=== PATIENT | female | born 1975 | race Caucasian/White ===

== ENCOUNTER 2020-07-07 08:58 | Inpatient (IN) ==
--- NOTE | 2020-07-04 11:23 | Anesthesiology Consultation ---
Date of Service July 04, 2020 Assessment & Plan Chart Review Chart Review: Acceptable Risk for Surgery and Patient NOT seen in Pre Admission Testing Consults Requested none ASA ASA3 Proposed Anesthesia Anesthesia Type: General History Surgery Operation Date: 07/07/20 10:05 Proposed Procedures p L3-L5 Decompression Fusion, Spinal Cord Monitoring - Vijay Ramirez DO Height/Weight Height: 5 ft 9 in Weight: 108.862 kg Allergies Allergy/AdvReac Type Severity Reaction Status Date / Time Sulfa (Sulfonamide Allergy Unknown Rash Verified 06/30/20 15:31 Antibiotics) Medications Home Medications Medication Instructions Recorded Confirmed Last Taken acetaminophen [Tylenol Extra 1,000 mg PO QID PRN 06/30/20 06/30/20 Unknown Strength] ascorbic acid (vitamin C) [Vitamin 1 g PO QPM 06/30/20 06/30/20 Unknown C] cholecalciferol (vitamin D3) 125 mcg PO QPM 06/30/20 06/30/20 Unknown [Vitamin D3] dextroamphetamine-amphetamine 15 mg PO QAM 06/30/20 06/30/20 Unknown [Adderall XR] multivitamin 1 tab PO QPM 06/30/20 06/30/20 Unknown prednisone 40 mg PO QAM 06/30/20 06/30/20 Unknown zinc 50 mg PO QPM 06/30/20 06/30/20 Unknown Past Medical History Medical History ADHD Anxiety HX Asthma A [id number] INHALER USE ADULT GERD (gastroesophageal reflux disease) ON OCC MVP (mitral valve prolapse) DX'D "MILD" PER ECHO PER PT Temporomandibular joint disorder RIGHT SIDE CLICKS ON OCC-LOCKED X 1-NOT RECENTLY Exercise / Class Metabolic Activity III < 4 Walking/Shop/Light housework Past Family History Family History Grandfather (Maternal) Family history of diabetes mellitus Past Surgical History Surgical History History of dilatation and curettage X 2 History of esophagogastroduodenoscopy (EGD) History of sleeve gastrectomy LATERAL Previous back surgery Past Anesthesia History No Hx of Anesthesia Complications and No Family Hx of Anesthesia Complications History of PONV No Hx of PONV and No Hx of Motion Sickness Social History Smoking Status: Former smoker Do You Dip or Chew Tobacco: No Smoking End Date: QUIT 2005 Hx Alcohol Use: Yes Alcohol type: beer and hard liquor Alcohol Intake Frequency Comment: RARELY 1 X A MONTH Hx Substance Use: No Testing Electrocardiogram Date: 07/04/20 Findings: + NSR @ (62) Chest X-Ray Date: 06/28/20 Findings: + NAD
[~2020-07-07 08:58] MED LIST: ACETAMINOPHEN 500 MG TAB PO SCH; CEFAZOLIN 2000MG 2,000 MG/15 ML SYR IV SCH; CeleBREX 200 MG CAP PO SCH; GABAPENTIN 900 MG DOSE PO SCH; LR 15ML/HR IV SCH
[2020-07-07] MEDS ORDERED: PROMETHAZINE HCL 12.5 MG in SODIUM CHLORIDE 0.9% 50 ML IV PRN ×3 (13:30→17:51)
[2020-07-07] MEDS ORDERED: ATROPINE SULFATE 0.1 MG/ML 10ML SYR IV PRN (13:30)
[2020-07-07] MEDS ORDERED: ONDANSETRON INJ 2 MG/ML 2 ML VIAL IV PRN ×2 (13:30→17:51)
[2020-07-07] MEDS ORDERED: ePHEDrine sulfate 50 MG/ML AMP IV PRN (13:30)
--- NOTE | 2020-07-07 13:38 | History & Physical Bridge Note ---
Date of Service July 07, 2020 History & Physical Bridge Note I have examined the patient, reviewed the History & Physical and in the interval since the performance of the History & Physical I have noted the following changes of clinical significance: no changes noted
--- NOTE | 2020-07-07 13:39 | History & Physical Report ---
Date of Service July 07, 2020 Assessment & Plan (1) Neurogenic claudication due to lumbar spinal stenosis: Admission and Anticipated Discharge Date Admission Date: L3-L5 decompression fusion History of Present Illness Chief Complaint: Back and bilateral leg pain Primary Care Provider: NO PCP This is a 44-year-old female who presents with worsening back and bilateral leg pain. After failing course of nonoperative care is here for surgical invention. Allergies Allergy/AdvReac Type Severity Reaction Status Date / Time Sulfa (Sulfonamide Allergy Unknown Rash Verified 07/07/20 09:32 Antibiotics) Home Medications Home Medications Medication Instructions Recorded Confirmed Type acetaminophen [Tylenol Extra 1,000 mg PO QID PRN 06/30/20 07/07/20 History Strength] ascorbic acid (vitamin C) [Vitamin 1 g PO QPM 06/30/20 07/07/20 History C] cholecalciferol (vitamin D3) 125 mcg PO QPM 06/30/20 07/07/20 History [Vitamin D3] dextroamphetamine-amphetamine 15 mg PO QAM 06/30/20 07/07/20 History [Adderall XR] multivitamin 1 tab PO QPM 06/30/20 07/07/20 History prednisone 40 mg PO QAM 06/30/20 07/07/20 History zinc 50 mg PO QPM 06/30/20 07/07/20 History Past Med/Surg History Medical History ADHD Anxiety HX Asthma A [id number] INHALER USE ADULT GERD (gastroesophageal reflux disease) ON OCC MVP (mitral valve prolapse) DX'D "MILD" PER ECHO PER PT Temporomandibular joint disorder RIGHT SIDE CLICKS ON OCC-LOCKED X 1-NOT RECENTLY Surgical History History of dilatation and curettage X 2 History of esophagogastroduodenoscopy (EGD) History of sleeve gastrectomy LATERAL Previous back surgery Family History Grandfather (Maternal) Family history of diabetes mellitus Social History Smoking Status: Former smoker Smoking End Date: QUIT 2006; Second Hand Exposure: Yes (MOTHER SMOKED); Do You Dip or Chew Tobacco: No; Hx Alcohol Use: Yes Alcohol type: beer and hard liquor Hx Substance Use: No Preferred Language: Setswana Communication Ability: Effective Paving Contractor Required: No Beliefs That Will Affect Care: None Current Living Situation: Spouse and Family Other Information That Helps Us Care for You: No Feels Safe at Home: Yes Safety Concerns: Feels Safe At This Time Assistive Devices: Glasses and Hearing Aid - Bilateral Physical Exam Physical Exam: Patient is alert and oriented neurologically intact Heart regular rhythm Lungs clear to auscultation Results & Data ([facility]) Vital Signs (Past 12 Hours) Vital Signs Temp Pulse Resp BP Pulse Ox 07/07/20 09:22 36.8 C 79 18 114/78 99
[2020-07-07] MEDS ORDERED: MIDAZOLAM HCL 1 MG/ML 2ML VIAL ONE (14:05)
[2020-07-07] MEDS ORDERED: fentaNYL citrate 100 MCG/2 ML VIAL ONE ×2 (14:06→14:50)
[2020-07-07] MEDS ORDERED: BACITRACIN INJ 50,000 UNIT VIAL ONE (14:07)
[2020-07-07] MEDS ORDERED: BUPIVACAINE/EPINEPHRINE 0.25% 1:200,000 30 ML VIAL ONE (14:07)
[2020-07-07] MEDS ORDERED: LIDOCAINE HCL 2% 2 ML VIAL/AMP(20MG/ML) INFIL ONE (15:29)
[2020-07-07] MEDS ORDERED: ONDANSETRON INJ 2 MG/ML 2 ML VIAL ONE (15:29)
[2020-07-07] MEDS ORDERED: DEXAMETHASONE SOD INJ 4 MG/ML VIAL ONE (15:29)
[2020-07-07] MEDS ORDERED: PROPOFOL IV EMULSION 10 MG/ML 20 ML VIAL IV ONE (15:29)
[2020-07-07] MEDS ORDERED: ROCURONIUM BROMIDE 10 MG/ML 5 ML VIAL IV ONE (15:29)
[2020-07-07] MEDS ORDERED: GLYCOPYRROLATE 0.2 MG/ML VIAL ONE (15:30)
[2020-07-07] MEDS ORDERED: NEOSTIGMINE METHYLSULFATE 1 MG/ML 10ML VIAL ONE (15:30)
[2020-07-07] MEDS ORDERED: FLOSEAL HEMOSTATIC MATRIX 10ML TOP ONE (15:41)
--- NOTE | 2020-07-07 15:57 | Operative Report ---
Post Operative Report Pre & Post Diagnosis Operation Date: 07/07/20 10:05 Pre-Op Diagnosis: Lumbar spinal stenosis with herniated nucleus pulposus and radiculopathy Post-Op Diagnosis: Same I identified the patient and participated in the time-out.: Yes Procedure Operation Date: 07/07/20 10:05 Actual Procedures #1 revision decompression with bilateral medial facetectomies and foraminotomies L3-4 and L4-5 per #2 posterior spinal fusion L3-4 and L4-5 per #3 placement posterior instrumentation L3-4 and L4-5 per #4 interbody fusion L3-4. #5 placement peek cage 9 x 22 mm at L3-4. #6 placement of locally harvested morselized autograft in the posterior lateral gutters. #7 placement infuse collagen sponge, master graft in the posterior lateral gutters and ostial amp and interbody space. Surgeon Vijay Ramirez DO Timber Incisor Operator Bruna Lozano Estimated Blood Loss 100 Findings Consistent with Post-Op Diagnosis Specimens None Indications This is a 45-year-old female who presents with above-mentioned diagnosis after failing course of nonoperative care is here for the above-mentioned procedure. Description of Procedure Patient was met with identified informed consent obtained. Patient was then taken to the operative suite underwent an patient placed in a prone position the Cortez table on top of the Chad frame. All bony prominences well-padded eyes inspected to ensure no external pressure placed upon the. This point the lumbar spine was prepped and draped in normal sterile fashion. Sharp dissection with the assistance of Bovie cautery performed down to and exposing the remaining lamina and transverse processes of L3-L4 and L5 bilaterally. From caudal cephalad fashion revision complete laminectomy of L3 partial laminectomy L4 was performed addressing severe spinal stenosis. Pedicle screws were then placed in L3-L4-L5 bilaterally with assistance of fluoroscopy and the proper sized shirin placed. By way the transforaminal approach on the right complete discectomy was performed endplates coated to subcortical bleeding bone and a 9 x 22 mm peek cage filled with osteo-bone graft tapped in position. The rods were then locked into final position bilaterally. The transverse processes of L3-L4-L5 bur to subcortical bleeding bone. Infuse collagen sponge master graft of autograft was placed in the posterior gutters. 15 round MICHAEL drain inserted. The incision was then closed with 1 Vicryl the fascia 2-0 Vicryl subcutaneously and 4 Monocryl for final skin closure Steri-Strip sterile dressings placed. Patient waken taken PACU stable initially please note spinal cord monitoring was utilized for the procedure no changes noted. Lastly Bruna Lozano was present at the entire surgery involved the patient positioning complex portion of the surgery and final skin closure. I attest to the content of the Intraoperative Record and any orders documented therein. Any exceptions are noted below.
--- NOTE | 2020-07-07 16:01 | Fluoroscopy Report ---
FL lumbar spine 2-3V CLINICAL HISTORY: L3-L5 DECOM/FUSION COMPARISON STUDY: FLUOROSCOPY TIME: 15 seconds. NUMBER OF FLUOROSCOPIC IMAGES: 2 FINDINGS: Intraoperative fluoroscopic spot images reveal postsurgical changes of an L3-4 discectomy a nd interbody fusion. There is evidence for an L3-L5 posterior fusion with pedicle screws and adjoinin g spinal rods IMPRESSION: 1. Intraoperative radiographs demonstrating an L3-L5 spinal decompression and fusion ACT 112: Negative or not required by law. Electronically signed by: David Ledezma M.D. 07/07/2020 3:59 PM
[2020-07-07] MEDS: fentaNYL citrate 100 MCG/2 ML VIAL IV PRN ×2 (16:39→16:50)
[2020-07-07] MEDS: HYDROmorphone INJ 2 MG/ML SYR/VIAL IV PRN ×2 (17:05→17:13)
--- NOTE | 2020-07-07 17:38 | Anesthesiology Progress Note ---
Date of Service July 07, 2020 Anesthesia Post Procedure Vital Signs Vital Signs: Temp Pulse Pulse Resp BP Pulse Ox 07/07/20 17:25 36.5 C 81 20 134/80 99 07/07/20 17:15 80 13 129/78 99 07/07/20 17:05 73 14 159/96 H 99 07/07/20 16:55 70 12 143/93 H 98 07/07/20 16:45 65 17 140/90 100 07/07/20 16:35 73 15 144/95 H 99 07/07/20 16:25 36.0 C L 76 18 136/82 100 07/07/20 09:22 36.8 C 79 18 114/78 99 Pain Intensity Lower Back: Pain Intensity: 4 Transfer of Care Handoff Completed per policy Notes Mental Status: alert / awake / arousable and participated in evaluation Patient Amnestic to Procedure: Yes Nausea / Vomiting: adequately controlled Pain: adequately controlled Airway Patency, RR, SpO2: stable & adequate BP & HR: stable & adequate Hydration State: stable & adequate Anesthetic Complications: no major complications apparent and Pt Satisfied with anesthetic care
[2020-07-07] MEDS ORDERED: HYDROmorphone INJ 0.5 MG/0.5 ML SYR IV PRN (17:51)
[2020-07-07] MEDS ORDERED: FAMOTIDINE 20 MG TAB PO PRN (17:51)
[2020-07-07] MEDS ORDERED: bisacodyL 10 MG SUPP PR PRN (17:51)
[2020-07-07] MEDS ORDERED: ONDANSETRON 4 MG OD TAB PO PRN (17:51)
[2020-07-07] MEDS ORDERED: SOD PHOSPHATE/SOD BIPHOSPHATE ENEMA 132 ML BTL PR PRN (17:51)
[2020-07-07] MEDS ORDERED: LORazepam 0.5 MG/1 ML VIAL IV PRN (17:51)
[2020-07-07] MEDS ORDERED: MAGNESIUM HYDROXIDE SUSP 30 ML UDC PO PRN (17:51)
[2020-07-07] MEDS ORDERED: DO NOT ADMINISTER PNEUMOCOCCAL VACCINE PRN (17:51)
[2020-07-07] MEDS ORDERED: NALOXONE HCL 0.4 MG/1 ML VIAL/CARP IV PRN (17:51)
[2020-07-07] MEDS ORDERED: ACETAMINOPHEN 1,000 MG/100 ML VIAL IV PRN (17:51)
[2020-07-07] MEDS ORDERED: DO NOT ADMINISTER FLU VACCINE PRN (17:51)
[2020-07-07] MEDS ORDERED: ALUMINUM/MAGNESIUM SUSP 30 ML UDC PO PRN (17:51)
[2020-07-07] MEDS ORDERED: METOCLOPRAMIDE HCL INJ 5 MG/ML 2 ML VIAL IV PRN (17:51)
[2020-07-07] MEDS ORDERED: LORazepam 0.5 MG TAB PO PRN (17:51)
[2020-07-07] MEDS: LACTATED RINGER'S 1,000 ML IV SCH ×2 (17:53→23:34)
[2020-07-07] MEDS: KETOROLAC 30 MG/ML VIAL IV SCH (19:19)
[2020-07-07] MEDS: CHOLECALCIFEROL 1,000 UNITS 25 MCG TAB PO SCH (20:28)
[2020-07-07] MEDS: DOCUSATE SODIUM/SENNA 50/8.6MG TAB PO SCH (20:28)
[2020-07-07] MEDS: MULTIVITAMIN TAB PO SCH (20:28)
[2020-07-07] MEDS: ZINC SULFATE 220 MG CAPSULE PO SCH (20:28)
[2020-07-07] MEDS: TRAMADOL HCL 50 MG TABLET PO PRN (20:28)
[2020-07-07] MEDS: CEFAZOLIN 2000MG 2,000 MG/15 ML SYR IV SCH (21:05)
[2020-07-07] MEDS: OXYCODONE HCL IR 5 MG TAB (IMMEDIATE RELEASE) PO PRN (23:45)
[2020-07-07] MEDS ORDERED: COUGH DROP (SUGAR FREE) LOZ 24 LOZ/1 BOX BUCCAL ONE (23:51)
[2020-07-08] MEDS: KETOROLAC 30 MG/ML VIAL IV SCH ×3 (01:58→11:37)
[2020-07-08 06:09] LABS: Basophils # (auto) 0.01 K/uL (0-0.2); Basophils % (auto) 0.1 %; Hematocrit (blood only) 36.2 % (37-47); Hemoglobin 11.6 g/dL (12.0-16.0); Immature Granulocytes # (auto) 0.03 K/uL (0.00-0.02); Immature Granulocytes % (auto) 0.2 %; Lymphocytes % (auto) 6.8 %; Mean Corpuscular Volume 84.2 fL (80-100); Mean Platelet Volume 8.9 fL (7.4-10.4); Monocytes # (auto) 0.68 K/uL (0.11-0.59); Monocytes % (auto) 5.1 %; Neutrophils # (auto) 11.61 K/uL (1.4-6.5); Neutrophils % (auto) 87.8 %; Platelet Count 272 K/uL (130-400); RDW Standard Deviation 39.4 fL (36.4-46.3); White Blood Count 13.23 K/uL (4.8-10.8)
[2020-07-08] MEDS: POLYETHYLENE (MIRALAX) 17 GM PACK PO SCH ×3 (06:13→18:13)
[2020-07-08] MEDS: CEFAZOLIN 2000MG 2,000 MG/15 ML SYR IV SCH (06:13)
[2020-07-08 06:34] LABS: BUN Creatinine Ratio 12.8 (10-20); Calcium 8.7 mg/dl (8.5-10.1); Creatinine Clr Calc Pharmacy 107.5 ml/min; Est GFR (Non-African American) 79.3; Potassium 4.1 mmol/L (3.5-5.1)
[2020-07-08] MEDS: DEXTROAMPHETAMINE/AMPHETAMINE ER 5 MG CAP PO SCH (08:12)
--- NOTE | 2020-07-08 11:42 | Orthopedic Progress Note ---
Date of Service July 08, 2020 Assessment & Plan (1) Neurogenic claudication due to lumbar spinal stenosis: Admission and Anticipated Discharge Date Admission Date: July 07, 2020 At this time we will continue physical therapy monitor her MICHAEL output anticipate discharge home later half this weekend. Subjective Back pain controlled leg symptoms markedly improved. Physical Exam Physical Exam: Patient is good strength testing is ambulating without difficulty. Results & Data ([facility]) Vital Signs (Past 12 Hours) Vital Signs Temp Pulse Resp BP BP Pulse Ox 07/08/20 07:25 37.2 C 85 16 96/58 L 94 07/08/20 02:05 36.7 C 85 16 102/60 94
[2020-07-08] MEDS: OXYCODONE HCL IR 5 MG TAB (IMMEDIATE RELEASE) PO PRN (15:11)
[2020-07-08] MEDS: TRAMADOL HCL 50 MG TABLET PO PRN (19:31)
[2020-07-08] MEDS: MULTIVITAMIN TAB PO SCH (19:32)
[2020-07-08] MEDS: DOCUSATE SODIUM/SENNA 50/8.6MG TAB PO SCH (19:32)
[2020-07-08] MEDS: CHOLECALCIFEROL 1,000 UNITS 25 MCG TAB PO SCH (19:33)
[2020-07-08] MEDS: ZINC SULFATE 220 MG CAPSULE PO SCH (19:33)
[2020-07-08] MEDS: HYDROmorphone INJ 1 MG/ML SYRINGE IV PRN (20:57)
[2020-07-09] MEDS: ACETAMINOPHEN 500 MG TAB PO PRN ×2 (00:09→13:25)
[2020-07-09] MEDS: OXYCODONE HCL IR 5 MG TAB (IMMEDIATE RELEASE) PO PRN ×3 (00:09→13:25)
[2020-07-09] MEDS: HYDROmorphone INJ 1 MG/ML SYRINGE IV PRN (07:46)
[2020-07-09] MEDS ORDERED: DEXAMETHASONE SOD PHOSPHATE 8 MG in SYRINGE 0 ML IV SCH (09:00)
[2020-07-09] MEDS: DEXTROAMPHETAMINE/AMPHETAMINE ER 5 MG CAP PO SCH ×2 (10:20→11:47)
--- NOTE | 2020-07-09 10:40 | Orthopedic Progress Note ---
Date of Service July 09, 2020 Assessment & Plan (1) Neurogenic claudication due to lumbar spinal stenosis: Admission and Anticipated Discharge Date Admission Date: July 07, 2020 At this time we will start p.o. prednisone. She had been taking considerable amounts of prednisone throughout her preoperative period of time. This may be contributing to her soreness today. If she continues to progress appropriately today we may be able to discharge her home tomorrow. Subjective Back pain is controlled she had some intermittent leg symptoms last night they are control at this time. She has been up and ambulating already this morning. Physical Exam Physical Exam: On exam she is good strength testing is lying in bed. Results & Data ([facility]) Vital Signs (Past 12 Hours) Vital Signs Temp Pulse Pulse Resp BP Pulse Ox 07/09/20 07:28 36.5 C 67 16 100/67 95 07/08/20 22:58 36.8 C 74 18 108/71 91
[2020-07-09] MEDS ORDERED: predniSONE 20 MG TAB PO ONE (11:30)
[2020-07-09] MEDS: TRAMADOL HCL 50 MG TABLET PO PRN ×3 (15:15→23:46)
[2020-07-09] MEDS: DOCUSATE SODIUM/SENNA 50/8.6MG TAB PO SCH (19:37)
[2020-07-09] MEDS: MULTIVITAMIN TAB PO SCH (19:37)
[2020-07-09] MEDS: CHOLECALCIFEROL 1,000 UNITS 25 MCG TAB PO SCH (19:37)
[2020-07-09] MEDS: ZINC SULFATE 220 MG CAPSULE PO SCH (19:38)
[2020-07-10] MEDS: OXYCODONE HCL IR 5 MG TAB (IMMEDIATE RELEASE) PO PRN ×2 (03:01→09:53)
[2020-07-10] MEDS: TRAMADOL HCL 50 MG TABLET PO PRN (07:52)
--- NOTE | 2020-07-10 08:34 | Discharge Summary ---
Date of Service July 10, 2020 Admission HPI Per Admitting Provider This is a 44-year-old female who presents with worsening back and bilateral leg pain. After failing course of nonoperative care is here for surgical invention. Admission Exam (Per Admitting) Constitutional WD/WN, vitals as above Eyes normal visual yeh by confrontation ENMT external ear and nose normal, oropharynx normal Neck normal visual inspection Respiratory normal respiratory effort Cardiovascular Extremities: normal capillary refill Chest (Breasts) Chest: normal inspection of chest Gastrointestinal (Abdomen) Inspection/Auscultation: abdomen normal to inspection Musculoskeletal no cyanosis or clubbing, extremities motor strength 5/5 Extremities: extremities normal to inspection and strength 5/5 throughout Skin no rashes, warm and dry Neurologic patellar DTR's 2+ bilat, sensation intact normal touch/pain/proprioception Psychiatric A+Ox3, euthymic affect Discharge Data Consultations 07/07/20 17:51 Consult Case Management - Discharge Planning Routine Procedures Performed Operation Date: 07/07/20 10:05 Actual Procedures p Interbody cage L3-L4, L3-L5 Decompression Fusion, Spinal Cord Monitoring - Vijay Ramirez DO Hospital Course (1) Neurogenic claudication due to lumbar spinal stenosis: Patient is being discharged home on postoperative day 3 status post L3-5 decompression and fusion. She is pain is better controlled today. Has some occasional buttock pain. Radicular pain greatly improved compared to preoperative status. She has had a bowel movement. MICHAEL drain output last shift is 15 cc. Lab values have been stable. She is making progress in physical therapy daily. Discharge Instructions ACTIVITY RECOMMENDATIONS: SELF CARE INSTRUCTIONS AFTER THORACIC/LUMBAR FUSIONS 1. You may walk to your tolerance. It is good exercise for your legs and back. Expect some back and intermittent leg aches and pains. 2. You may perform "counter-top" level activities (make a sandwich, philippe with a project, etc.). 3. No bending or lifting of more than 10 pounds or back twisting of any nature (roll like a log when turning in bed). 4. You may ride in a car for 20-30 minutes at a time. No driving until after your first visit with your doctor. 5. Frequent changes of position and restricting sitting to 30 minutes at a time will help limit the amount of back spasms and stiffness you may experience. 6. You may discontinue the use of ambulatory aids (cane, crutches, etc.) once your strength and confidence allow. 7. You may conference coordinator the shower and let water strike your incision when you arrive home at least once daily. Do not take a tub bath, sit in a hot tub or go into a swimming pool until after your first recheck in the office. SPECIAL CARE INSTRUCTIONS: VERY IMPORTANT TO READ AND REVIEW A. Your surgical incision has been closed with a cosmetic suture under the skin that will dissolve in about 6 weeks. In 14 days, you can use a pair of clean scissors and cut the suture that is left outside of the skin at the ends of your incision. 1. The small skin tapes can be removed 7 days after surgery if they have not fallen off by that point. 2. You may keep the wound open to air as much as possible to promote healing after post-op day number 5 unless told otherwise by your doctor. 3. If you think the wound looks like it is becoming infected (redness or worsening drainage) and/or you are experiencing fever, chill or worsening back pain and muscle spasms, contact the office so that we may evaluate you as soon as possible. B. Complications are uncommon, but please contact us if you have any signs or symptoms of: 1. wound infection (fever higher than 102.5 degrees F, redness, separation of wound, drainage, or increasing pain from the incision) 2. blood clots in legs (pain, swelling, redness and warmth in legs) 3. urinary tract infection (fever higher than 102.5 degrees F, burning upon urination or increased frequency of urination) 4. nerve problems (inability to walk on your toes or heels, numbness, loss of bowel or bladder control) 5. any other symptoms that concern you C. Please call the office at if you have any concerns or questions about your operation or recovery. D. No smoking! Smoking drastically decreases the chance of a solid fusion. E. Do not take any anti-inflammatory medications (Indocin, Advil, Motrin, Aspirin, Naprosyn, etc.) as these may inhibit the chance of a solid fusion. Tylenol is okay to take for pain. MANAGING PAIN AFTER SPINAL SURGERY 1. Narcotic medication is intended for short-term use and will be provided for surgical pain. Surgical pain usually lasts for a period of 4-6 weeks. Narcotic medication includes Percocet, Vicodin, Darvocet, Tylenol #3 or Lortab. 2. Longer-term pain is more appropriately treated with non-narcotic medication such as Tylenol ES. 3. Muscle spasm is not appropriately treated with narcotics. Muscle relaxers such as Soma, Flexeril or Skelaxin can be used along with Tylenol ES. 4. Remember that we all live with some "aches and pains". This is not unusual or uncommon after an injury or as we get older. a. Back pain is expected and may include muscle spasms for 4 to 6 weeks after surgery. The pain should gradually improve. If the pain worsens for no apparent reason, please contact the office. b. Intermittent leg pain may also be experienced and should not be concerned about unless it worsens for no apparent reason. If so, please contact the office. 5. We will provide appropriate medication within the normal guidelines of their prescribed use. We will also be very cautious and aware of potential abuse and extended duration of patients' medication needs. a. Pain medications are for your comfort and to assist with sleep and rest so that the tissue can heal. They are not provided in order to return to normal activity and should not be used through the day. To do so or worsening pain at night can result from ongoing tissue damage and development of tolerance to the prescribed medicine. 6. Please allow 2-3 days to process refills. Prescriptions will not be mailed but must be picked up at the office. FOLLOW UP VISIT: Keep your scheduled follow-up appointment. Any questions, please call the office at . Supervising Physician Co-Signing Physician Notes Dr. Vijay Ramirez
[2020-07-10] MEDS ORDERED: POLYETHYLENE (MIRALAX) 17 GM PACK PO PRN (08:35)
[2020-07-10] MEDS: DEXTROAMPHETAMINE/AMPHETAMINE ER 5 MG CAP PO SCH (08:47)
[2020-07-10] MEDS ORDERED: predniSONE 20 MG TAB PO SCH (09:00)
[2020-07-12] MEDS ORDERED: CEFAZOLIN 2000MG 2,000 MG/15 ML SYR IV SCH (06:00)
== END 2020-07-10 10:14 | disposition home or self-care (01) | DRG 455 ==
LOC: ASU 08:58 → MERGE 10:05 → 3E 16:46
DX: Z79.899 Other long term (current) drug therapy; Z79.52 Long term (current) use of systemic steroids; Z87.891 Personal history of nicotine dependence; Z88.2 Allergy status to sulfonamides; M48.062 Spinal stenosis, lumbar region with neurogenic claudication; M51.16 Intervertebral disc disorders with radiculopathy, lumbar region; F90.9 Attention-deficit hyperactivity disorder, unspecified type

== ENCOUNTER 2024-09-06 23:48 | Observation (INO) ==
[2024-09-07] MEDS: OPTIRAY 320 125ml IV ONE (00:21)
[2024-09-07 00:24] LABS: Basophils # (auto) 0.05 K/uL (0.00-0.20); Basophils % (auto) 0.7 %; Eosinophils # (auto) 0.13 K/uL (0.00-0.50); Eosinophils % (auto) 1.7 %; Hematocrit (blood only) 40.2 % (37.0-47.0); Hemoglobin 13.3 g/dl (12.0-16.0); Immature Granulocytes # (auto) 0.01 K/uL (0.01-0.20); Immature Granulocytes % (auto) 0.1 %; Lymphocytes # (auto) 2.13 K/uL (1.20-3.40); Lymphocytes % (auto) 27.8 %; Mean Corpuscular Hemoglobin 28.6 pg (25.0-34.0); Mean Corpuscular Hgb Conc 33.1 g/dL (32.0-36.0); Mean Corpuscular Volume 86.5 fL (80.0-100.0); Mean Platelet Volume 9.1 fL (9.4-12.4); Monocytes # (auto) 0.64 K/uL (0.11-0.59); Monocytes % (auto) 8.4 %; Neutrophils % (auto) 61.3 %; Platelet Count 275 K/uL (130-400); RDW Coefficient of Variation 11.9 % (11.5-14.5); RDW Standard Deviation 37.4 fL (36.4-46.3); Red Blood Count 4.65 M/uL (4.20-5.40); White Blood Count 7.66 K/ul (4.8-10.8)
--- NOTE | 2024-09-07 00:25 | Emergency Department Note ---
Impression & Plan Mouth droop due to facial weakness admit to the [facility] ED Provider Note NAME: PARKER MARSHALL AGE: 49 SEX: Female INFORMANT: Patient ED PROVIDER(S): Xiomara Day DO CHIEF COMPLAINT: Left-sided facial droop PLAN: Disposition: admit to the [facility] MEDICAL DECISION MAKING: this is a 49-year-old female patient who presents to the emergency department with a sudden onset of left-sided facial droop approximately 45 minutes prior to arrival. No previous history of the same. Patient was preparing to go to bed when she noted that she had some droop to the left side of her mouth which was confirmed by her family. She also noticed some numbness in her left heel throughout the day today but this is not unusual for her as she has spinal stenosis in her lumbar spine. She denies any other strokelike symptoms. Patient has a family history of factor V Leiden deficiency but she has never been checked for this. She recently underwent a CTA of her chest to rule out PE as she is status postcholecystectomy with some chest discomfort. This was negative. laboratory studies here tonight revealed no leukocytosis or anemia. Coagulation studies were normal. Renal function and glucose were normal. Troponin was negative. Lyme testing was negative. A stroke alert was called upon her arrival and she immediately went for CT scan of the brain and CT angiogram of the brain and neck. Patient was evaluated by the [facility] neurologist. He recommended oral aspirin, starting a statin, and MRI of the brain. Patient went for MRI of the brain with and without contrast. Her neurological exam remains unchanged with only drooping to the left side of her mouth. MRIs were negative according to radiology. I discussed the case with the [facility] Hospitalist and they will evaluate for further Factor testing/coagulation workup, tickborne illness testing, inpatient care and neurology evaluation. Care/management discussed with: [facility] telestroke- Dr. Julio; flight kitchen manager; Dr. Truong Triage Nursing notes: reviewed and agree with them. Vital Signs: reviewed and were unremarkable Differential Diagnosis: migraine, CVA, Lyme disease, [place]'s palsy, other tickborne illness Diagnostics, independently interpreted by me: ECG: normal sinus rhythm at a rate of [address] segment elevation or signs of ischemia. QTc was 437 ms. Cardiac Monitoring: normal sinus rhythm at 65 Imaging studies: CT scan of the brain: As per [facility] CTA of the brain: As per [facility] CTA of the neck: As per [facility] MRI of the brain with and without contrast: As per [facility] HPI: 49 year old Female arrives for evaluation of left-sided facial droop and numbness. patient was preparing to go to bed today when she was brushing her teeth and looked in the mirror noticed left side of her face seemed to be drooped. She confirmed this with her family. They brought her here to the emergency department for evaluation. The previous symptoms like this in the past. She does note that her left heel felt slightly numb over the the day today but this is not unusual for her as she has a history of lumbar spinal stenosis. 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 Pupils are equal, round, and reactive to light. Extraocular eye muscles are intact and sclera are anicteric. Ears - bilaterally patent canals with noninjected tympanic membranes and no evidence of hemotympanum. Nose - moist nasal mucosa without discharge. Mouth - moist buccal mucosa. Oropharynx is nonerythematous and there is no tonsillar exudate or edema noted. Neck: Supple; no JVD, nuchal rigidity, cervical lymphadenopathy, or auscultated bruits. Heart: Regular rate and rhythm. There is a normal S1 and S2 with no murmurs, clicks, or gallops appreciated. Lungs: Clear to auscultation bilaterally with no wheezes, rales, or rhonchi. Abdomen: Soft, completely nontender, nondistended, with good bowel sounds. There are no palpable pulsatile masses or hepatosplenomegaly. There is no guarding, rigidity, or rebound noted. Extremities: No evidence of cyanosis, clubbing, or edema. There are easily palpable peripheral pulses. Neuro:The patient is awake and alert, oriented to day, time, and place. Muscle strength is 5/5 in all 4 extremities. The patient has equal rolling mill operator strength and equal pedal push and pull. There are no cerebellar signs. Cranial nerves II through XII are grossly intact except the left side of her mouth is drooped and there is loss of contour to the left nasolabial fold. Emergency department course: A stroke alert was called. An order was placed for continuous cardiac monitoring. The patient was in a normal sinus rhythm at a rate of 65. A twelve-lead EKG was obtained. The patient went emergently for CT scan of the brain and CT angiogram of the brain and neck. While the patient was at CT, I discussed the case with Dr. Julio From [place]. he evaluated the patient upon her return from radiology. He recommended she receive aspirin, statin, and have MRI testing of the brain. I reviewed laboratory studies and CT scans with the patient and her . Patient will go for MRI of the brain with and without contrast. She was premedicated with IV Ativan. This was interpreted as negative. I discussed the case with the [facility] Hospitalist and they will evaluate for further inpatient care. Past Med/Surg History Problem List (Updated 09/07/24 @ 07:33 by Xiomara Day DO) Mouth droop due to facial weakness (Acute) Facial droop History of sleeve gastrectomy LATERAL Dietary counseling and surveillance ADHD Anxiety HX GERD (gastroesophageal reflux disease) ON OCC Obesity Abnormal weight gain Neurogenic claudication due to lumbar spinal stenosis Medical History (Updated 09/07/24 @ 07:33 by Xiomara Day DO) MVP (mitral valve prolapse) DX'D "MILD" PER ECHO PER PT Temporomandibular joint disorder RIGHT SIDE CLICKS ON OCC-LOCKED X 1-NOT RECENTLY Asthma A [id number] INHALER USE ADULT Surgical History (Updated 03/23/21 @ 06:34 by Vimal Wagner MD) History of dilatation and curettage X 2 Previous back surgery History of esophagogastroduodenoscopy (EGD) Family History (Updated 08/24/22 @ 09:48 by Makenzie Michael) Grandfather (Maternal) Family history of diabetes mellitus Aunt Myocardial infarction Denies family history of Ovarian cancer Prostate cancer Breast cancer Colorectal cancer Social History Smoking Status: Former smoker Tobacco Type: Cigarettes Second Hand Exposure: No; Do You Dip or Chew Tobacco: No; Tobacco Cessation Education Requested by Patient: No Hx Alcohol Use: Yes Alcohol type: beer and hard liquor Hx Substance Use: No Preferred Language: Qatari Communication Ability: Effective [place] Cutting Machine Operator Required: No Beliefs That Will Affect Care: None Current Living Situation: Spouse Other Information That Helps Us Care for You: No Feels Safe at Home: No Is there a partner from a previous relationship who is making you feel unsafe now?: No Any Concerns about Your Family Situation: No Would You Like to Speak to Someone About Your Situation: No Safety Concerns: Feels Safe At This Time Assistive Devices: None and Glasses Allergies Allergies Allergy/AdvReac Type Severity Reaction Status Date / Time Sulfa (Sulfonamide Allergy Unknown Rash Verified 02/07/24 08:44 Antibiotics) Home Meds Home Medications Medication Instructions Recorded Confirmed acetaminophen 500 mg capsule 1,000 mg PO QID PRN Pain 06/30/20 09/07/24 escitalopram oxalate 20 mg tablet 20 mg PO DAILY 08/24/22 09/07/24 (Lexapro) clonazepam 0.5 mg tablet 0.5 mg PO BID PRN Anxiety 02/07/24 09/07/24 lamotrigine 100 mg tablet 100 mg PO QPM 02/07/24 09/07/24 tirzepatide 7.5 mg/0.5 mL 7.5 mg subcut WK 02/07/24 09/07/24 subcutaneous pen injector (Mounjaro) Results & Data (ED) Vital Signs Vital Signs - 24 hr 09/06/24 23:51 09/07/24 00:11 09/07/24 00:13 Temperature 36.8 C Temperature Source Temporal Artery Scan Pulse Rate 68 65 Pulse Rate [Apical] Pulse Rhythm Regular Pulse Rhythm [Apical] Pulse Strength Normal Respiratory Rate 18 Respiratory Effort / Characteristics Non-Labored Spontaneous Respiratory Depth Normal Respiratory Pattern Regular Blood Pressure 141/89 H Blood Pressure [Right Arm] Blood Pressure Mean 106 Blood Pressure Mean [Right Arm] Blood Pressure Position Sitting Pulse Oximetry 98 98 Oxygen Delivery Method Room Air Room Air Oxygen Flow Rate 0 Sepsis Recent Fever Within 48 Hours No Sepsis New/Unexplained Change in Mental Status N/A Sepsis Action Taken by Nursing No Action Required 09/07/24 01:15 09/07/24 02:21 09/07/24 04:00 Temperature Temperature Source Pulse Rate Pulse Rate [Apical] 69 70 68 Pulse Rhythm Pulse Rhythm [Apical] Regular Regular Pulse Strength Respiratory Rate 18 18 16 Respiratory Effort / Characteristics Non-Labored Spontaneous Non-Labored Spontaneous Non-Labored Spontaneous Respiratory Depth Normal Normal Normal Respiratory Pattern Regular Regular Regular Blood Pressure Blood Pressure [Right Arm] 122/75 127/78 111/68 Blood Pressure Mean Blood Pressure Mean [Right Arm] 90 94 82 Blood Pressure Position Pulse Oximetry 96 94 95 Oxygen Delivery Method Room Air Room Air Room Air Oxygen Flow Rate Sepsis Recent Fever Within 48 Hours Sepsis New/Unexplained Change in Mental Status Sepsis Action Taken by Nursing 09/07/24 04:04 Temperature Temperature Source Pulse Rate 66 Pulse Rate [Apical] Pulse Rhythm Pulse Rhythm [Apical] Pulse Strength Respiratory Rate Respiratory Effort / Characteristics Respiratory Depth Respiratory Pattern Blood Pressure Blood Pressure [Right Arm] Blood Pressure Mean Blood Pressure Mean [Right Arm] Blood Pressure Position Pulse Oximetry Oxygen Delivery Method Oxygen Flow Rate Sepsis Recent Fever Within 48 Hours Sepsis New/Unexplained Change in Mental Status Sepsis Action Taken by Nursing Laboratory Data 09/07/24 00:13 09/07/24 00:13 Lab Results 09/07/24 09/07/24 09/07/24 Range/Units 00:11 00:12 00:13 WBC 7.66 (4.8-10.8) K/ul RBC 4.65 (4.20-5.40) M/uL Hgb 13.3 (12.0-16.0) g/dl Hct 40.2 (37.0-47.0) % MCV 86.5 (80.0-100.0) fL MCH 28.6 (25.0-34.0) pg MCHC 33.1 (32.0-36.0) g/dL RDW Std Deviation 37.4 (36.4-46.3) fL RDW Coeff of Farzana 11.9 (11.5-14.5) % Plt Count 275 (130-400) K/uL MPV 9.1 L (9.4-12.4) fL Immature Gran % (Auto) 0.1 % Neut % (Auto) 61.3 % Lymph % (Auto) 27.8 % [place] % (Auto) 8.4 % Eos % (Auto) 1.7 % Baso % (Auto) 0.7 % Neut # (Auto) 4.70 (1.40-6.50) K/uL Lymph # (Auto) 2.13 (1.20-3.40) K/uL [place] # (Auto) 0.64 H (0.11-0.59) K/uL Eos # (Auto) 0.13 (0.00-0.50) K/uL Baso # (Auto) 0.05 (0.00-0.20) K/uL Immature Gran # (Auto) 0.01 (0.01-0.20) K/uL PT 10.5 (9.0-12.0) Seconds INR 1.0 (0.9-1.1) APTT 28 (21-31) Seconds PTT Ratio 1.0 Sodium 137 (136-145) mmol/L Potassium 3.8 (3.5-5.1) mmol/L Chloride 103 (98-107) mmol/L Carbon Dioxide 29 (21-32) mmol/L Anion Gap 5 (3-11) BUN 19 (6-23) mg/dl Creatinine 1.18 (0.6-1.2) mg/dl Est Cr Clr Drug Dosing 68.7 ml/min eGFR 56.62 BUN/Creatinine Ratio 16.1 (10-20) Glucose 91 (70-99(Fasting)) mg/dl POC Glucose 107 H (70-99) mg/dl Calcium 9.4 (8.6-10.3) mg/dl Magnesium 2.2 (1.7-2.4) mg/dl Total Bilirubin 0.5 (0.2-1.0) mg/dl AST 21 (13-39) U/L ALT 37 (7-52) U/L Alkaline Phosphatase 58 (34-104) U/L Troponin I High Sens < 2.3 (0-14) pg/ml Total Protein 6.9 (6.0-8.3) gm/dl Albumin 4.1 (3.4-5.0) gm/dl Globulin 2.8 (2.5-4.0) gm/dl Albumin/Globulin Ratio 1.5 (0.9-2) Lyme Disease Screen Negative (Negative) Blood Type O Positive Antibody Screen NEGATIVE Administered Medications Discontinued Medications Aspirin (Aspirin Chew 324 Mg) 324 mg PO NOW STA Stop: 09/07/24 01:15 Last Admin: 09/07/24 01:19 Dose: 324 mg Documented By: SUZETTE Gadobutrol (Gadobutrol 65ml Vial) 8.5 ml IV ONCE ONE Stop: 09/07/24 02:13 Last Admin: 09/07/24 02:12 Dose: 8.5 ml Documented By: VENANCIO Ioversol (Optiray 320 125ml) 118 ml IV ONCE ONE Stop: 09/07/24 00:19 Last Admin: 09/07/24 00:21 Dose: 118 ml Documented By: LUCILLE Lorazepam (Lorazepam 2 Mg/1 Ml Vial) 1 mg IV NOW STA Stop: 09/07/24 01:35 Last Admin: 09/07/24 01:39 Dose: 1 mg Documented By: EMB Imaging Data Radiologist's Impression: Head CT 09/07/24 00:02 EXAM: CT head/brain wo con CLINICAL HISTORY: neuro deficit, acute stroke suspected 118 cc otpi 320 TECHNIQUE: Axial non-contrast CT scan of the brain was performed from the skull base to the high parietal region with coronal and sagittal reformats. One of the following dose reduction techniques were utilized for this exam: Automated exposure control, adjustment of the mA and/or kV according to patient size, use of iterative reconstruction. COMPARISON: None. FINDINGS: Brain Parenchyma: Normal attenuation of the cerebral hemispheres, cerebellum, and brainstem. No evidence of acute infarct, hemorrhage, or mass effect. No abnormal areas of hypo- or hyperattenuation. Ventricular System: Ventricles are normal in size and configuration. No evidence of hydrocephalus or ventricular enlargement. Subarachnoid Spaces: Normal sulci and cisterns. No evidence of subarachnoid hemorrhage or extra-axial fluid collections. Cerebellum and Brainstem: Normal size and signal. No masses, lesions, or areas of abnormal signal. Orbits: Normal appearance of the globes, optic nerves, and extraocular muscles. No evidence of orbital masses or abnormal signals. Sinuses: Clear paranasal sinuses. No evidence of sinusitis or mucosal thickening. Mastoid Air Cells: Clear mastoid air cells. No evidence of mastoiditis. Skull and Meninges: Normal skull morphology. IMPRESSION: No established acute infarction is seen at the present study. Early changes of stroke may not be detected on a CT scan. If strong clinical suspicion of stroke then suggest MRI with diffusion-weighted imaging. [facility]'s ER was called at [phone] at 11:53 PM FOOD SERVICE MANAGER, 09/06/2024, and Dr. Day was informed regarding the Stroke Results. Electronically signed by Shannon Marquez 09-07-2024 12:55 AM Head CTA 09/07/24 00:02 EXAM: CT angio head w con CLINICAL HISTORY: neuro deficit, acute stroke suspected 118 cc otpi 320 TECHNIQUE: Axial CT angiography of the head was done with 118ml of Opitray-320mg/ml intravenous contrast and sagittal and coronal reformats. One of the following dose reduction techniques were utilized for this exam: Automated exposure control, adjustment of the mA and/or kV according to patient size, use of iterative reconstruction. One of these 3D techniques was utilized: Maximum Intensity Pixel (MIP), 3D Reconstructed Images, Volume Rendered Images, Surface Shaded Rendering. COMPARISON: CT head same date. FINDINGS: The cavernous portions of bilateral internal carotid arteries show normal contrast opacification. Bilateral anterior and middle cerebral arteries appear normal in caliber and contrast opacification. The basilar artery and bilateral posterior cerebral arteries appear normal in caliber and contrast opacification. The visualized vertebral arteries appear normal in caliber and contrast opacification. No evidence of definite thrombus / arteriovenous malformation. IMPRESSION: Unremarkable CT angiography of head. [facility]'s ER was called at [phone] at 11:53 PM FOOD SERVICE MANAGER, 09/06/2024, and Dr. Day was informed regarding the Stroke Results. Electronically signed by Shannon Marquez 09-07-2024 01:00 AM Neck CTA 09/07/24 00:02 EXAM: CT angio neck with con CLINICAL HISTORY: neuro deficit, acute stroke suspected 118 cc otpi 320 TECHNIQUE: Axial CT angiography of the neck was done with 118ml of Opitray-320mg/ml contrast and sagittal and coronal reformats. One of the following dose reduction techniques were utilized for this exam: Automated exposure control, adjustment of the mA and/or kV according to patient size, use of iterative reconstruction. One of these 3D techniques was utilized: Maximum Intensity Pixel (MIP), 3D Reconstructed Images, Volume Rendered Images, Surface Shaded Rendering. COMPARISON: None. FINDINGS: The aortic arch shows a normal branching pattern. Bilateral common carotid arteries appear normal in caliber and contrast opacification. The cervical portions of bilateral internal carotid arteries appear normal in caliber and contrast opacification. Bilateral external carotid arteries appear normal in caliber and contrast opacification. The visualized portions of bilateral vertebral arteries appear normal in caliber and contrast opacification. No arteriovenous malformation was noted. Incidental complex cystic lesions with lobulated margins and calcific foci seen in both lobes of thyroid gland. Recommended, and emergent ultrasound correlation IMPRESSION: Unremarkable CT angiography of neck. [facility]'s ER was called at [phone] at 11:53 PM FOOD SERVICE MANAGER, 09/06/2024, and Dr. Day was informed regarding the Stroke Results. Electronically signed by Shannon Marquez 09-07-2024 12:58 AM Brain MRI 09/07/24 01:14 EXAM: MR brain wo/w con CLINICAL HISTORY: left side facial weakness. left side facial droop reported by the ED. no history of previous stroke. CT head done 09/07/24. No previous brain MRI here. room A9B. injected 8.5cc gadavist through existing iv uneventful at 0210 258 images TECHNIQUE: MRI of the brain was performed without and with 8.5ml of Gadovist intravenous contrast administration acquiring multiple sequences. COMPARISON: 09/06/2024 reviewed. FINDINGS: Brain Parenchyma: No evidence of acute infarction or hemorrhage. Chu-white matter differentiation is preserved. No abnormal signal-intensity lesions were identified. Post-Contrast Findings: No abnormal enhancement of the brain parenchyma or meninges. Ventricles and Sulci: Ventricular system is within normal limits without evidence of hydrocephalus. Sulci and cisternal spaces are age-appropriate. Brainstem and Cerebellum: Normal appearance of the brainstem and cerebellum without focal lesions or abnormal enhancement. Vessels: Intracranial vessels appear normal without evidence of vascular malformations or aneurysms. Skull and Calvarium: No evidence of skull vault lesions or abnormal marrow signals within the calvarium. IMPRESSION: MRI of the brain with and without contrast: 1. Normal brain parenchyma and structures. 2. No evidence of acute intracranial pathology or abnormal contrast enhancement. 3. No significant interval changes when compared with prior CT. Electronically signed by Shannon Marquez 09-07-2024 03:34 AM Discharge Plan Visit Data Chief Complaint: Stroke Alert Stated Complaint: FACIAL WEAKNESS, LEG WEAKNESS ED Provider: Xiomara Day Discharge Problem: Mouth droop due to facial weakness Patient Disposition: Admitted As Inpatient Discharge Instructions Interventions: ED Discharge Assessment Last Done: 09/07/24 05:39
[2024-09-07 00:44] LABS: Alanine Aminotransferase 37 U/L (7-52); Albumin Globulin Ratio 1.5 (0.9-2); Albumin Level 4.1 gm/dl (3.4-5.0); Alkaline Phosphatase 58 U/L (34-104); Anion Gap 5 (3-11); Aspartate Aminotransferase 21 U/L (13-39); BUN Creatinine Ratio 16.1 (10-20); Bilirubin,Total 0.5 mg/dl (0.2-1.0); Blood Urea Nitrogen 19 mg/dl (6-23); Calcium 9.4 mg/dl (8.6-10.3); Carbon Dioxide 29 mmol/L (21-32); Chloride 103 mmol/L (98-107); Creatinine Clr Calc Pharmacy 68.7 ml/min; Globulin 2.8 gm/dl (2.5-4.0); Glucose 91 mg/dl (70-99(Fasting)); Magnesium 2.2 mg/dl (1.7-2.4); Potassium 3.8 mmol/L (3.5-5.1); Sodium 137 mmol/L (136-145); Total Protein 6.9 gm/dl (6.0-8.3)
[2024-09-07 00:50] LABS: Troponin I High Sensitivity < 2.3 pg/ml (0-14)
--- NOTE | 2024-09-07 00:56 | CT Scan Report ---
EXAM: CT head/brain wo con CLINICAL HISTORY: neuro deficit, acute stroke suspected 118 cc otpi 320 TECHNIQUE: Axial non-contrast CT scan of the brain was performed from the skull base to the high parietal region with coronal and sagittal reformats. One of the following dose reduction techniques were utilized for this exam: Automated exposure control, adjustment of the mA and/or kV according to patient size, use of iterative reconstruction. COMPARISON: None. FINDINGS: Brain Parenchyma: Normal attenuation of the cerebral hemispheres, cerebellum, and brainstem. No evidence of acute infarct, hemorrhage, or mass effect. No abnormal areas of hypo- or hyperattenuation. Ventricular System: Ventricles are normal in size and configuration. No evidence of hydrocephalus or ventricular enlargement. Subarachnoid Spaces: Normal sulci and cisterns. No evidence of subarachnoid hemorrhage or extra-axial fluid collections. Cerebellum and Brainstem: Normal size and signal. No masses, lesions, or areas of abnormal signal. Orbits: Normal appearance of the globes, optic nerves, and extraocular muscles. No evidence of orbital masses or abnormal signals. Sinuses: Clear paranasal sinuses. No evidence of sinusitis or mucosal thickening. Mastoid Air Cells: Clear mastoid air cells. No evidence of mastoiditis. Skull and Meninges: Normal skull morphology. IMPRESSION: No established acute infarction is seen at the present study. Early changes of stroke may not be detected on a CT scan. If strong clinical suspicion of stroke then suggest MRI with diffusion-weighted imaging. [facility]'s ER was called at [phone] at 11:53 PM PRODUCT ENGINEERING MANAGER, 09/06/2024, and Dr. Day was informed regarding the Stroke Results. Electronically signed by Shannon Marquez 09-07-2024 12:55 AM
[2024-09-07 00:57] LABS: Partial Thromboplastin Time 28 Seconds (21-31); Prothrombin Time 10.5 Seconds (9.0-12.0)
--- NOTE | 2024-09-07 00:58 | CT Scan Report ---
EXAM: CT angio neck with con CLINICAL HISTORY: neuro deficit, acute stroke suspected 118 cc otpi 320 TECHNIQUE: Axial CT angiography of the neck was done with 118ml of Opitray-320mg/ml contrast and sagittal and coronal reformats. One of the following dose reduction techniques were utilized for this exam: Automated exposure control, adjustment of the mA and/or kV according to patient size, use of iterative reconstruction. One of these 3D techniques was utilized: Maximum Intensity Pixel (MIP), 3D Reconstructed Images, Volume Rendered Images, Surface Shaded Rendering. COMPARISON: None. FINDINGS: The aortic arch shows a normal branching pattern. Bilateral common carotid arteries appear normal in caliber and contrast opacification. The cervical portions of bilateral internal carotid arteries appear normal in caliber and contrast opacification. Bilateral external carotid arteries appear normal in caliber and contrast opacification. The visualized portions of bilateral vertebral arteries appear normal in caliber and contrast opacification. No arteriovenous malformation was noted. Incidental complex cystic lesions with lobulated margins and calcific foci seen in both lobes of thyroid gland. Recommended, and emergent ultrasound correlation IMPRESSION: Unremarkable CT angiography of neck. [facility]'s ER was called at [phone] at 11:53 PM MANAGER PACKAGING, 09/06/2024, and Dr. Day was informed regarding the Stroke Results. Electronically signed by Shannon Marquez 09-07-2024 12:58 AM
--- NOTE | 2024-09-07 01:00 | CT Scan Report ---
EXAM: CT angio head w con CLINICAL HISTORY: neuro deficit, acute stroke suspected 118 cc otpi 320 TECHNIQUE: Axial CT angiography of the head was done with 118ml of Opitray-320mg/ml intravenous contrast and sagittal and coronal reformats. One of the following dose reduction techniques were utilized for this exam: Automated exposure control, adjustment of the mA and/or kV according to patient size, use of iterative reconstruction. One of these 3D techniques was utilized: Maximum Intensity Pixel (MIP), 3D Reconstructed Images, Volume Rendered Images, Surface Shaded Rendering. COMPARISON: CT head same date. FINDINGS: The cavernous portions of bilateral internal carotid arteries show normal contrast opacification. Bilateral anterior and middle cerebral arteries appear normal in caliber and contrast opacification. The basilar artery and bilateral posterior cerebral arteries appear normal in caliber and contrast opacification. The visualized vertebral arteries appear normal in caliber and contrast opacification. No evidence of definite thrombus / arteriovenous malformation. IMPRESSION: Unremarkable CT angiography of head. [facility]'s ER was called at [phone] at 11:53 PM GENERAL UTILITY MACHINE OPERATOR, 09/06/2024, and Dr. Day was informed regarding the Stroke Results. Electronically signed by Shannon Marquez 09-07-2024 01:00 AM
[2024-09-07] MEDS: ASPIRIN CHEW 324 MG PO STA (01:19)
[2024-09-07] MEDS: LORazepam 2 MG/1 ML VIAL IV STA (01:39)
[2024-09-07] MEDS: GADOBUTROL 65ML VIAL IV ONE (02:12)
--- NOTE | 2024-09-07 03:34 | Magnetic Resonance Report ---
EXAM: MR brain wo/w con CLINICAL HISTORY: left side facial weakness. left side facial droop reported by the ED. no history of previous stroke. CT head done 09/07/24. No previous brain MRI here. room A9B. injected 8.5cc gadavist through existing iv uneventful at 0210 258 images TECHNIQUE: MRI of the brain was performed without and with 8.5ml of Gadovist intravenous contrast administration acquiring multiple sequences. COMPARISON: 09/06/2024 reviewed. FINDINGS: Brain Parenchyma: No evidence of acute infarction or hemorrhage. Chu-white matter differentiation is preserved. No abnormal signal-intensity lesions were identified. Post-Contrast Findings: No abnormal enhancement of the brain parenchyma or meninges. Ventricles and Sulci: Ventricular system is within normal limits without evidence of hydrocephalus. Sulci and cisternal spaces are age-appropriate. Brainstem and Cerebellum: Normal appearance of the brainstem and cerebellum without focal lesions or abnormal enhancement. Vessels: Intracranial vessels appear normal without evidence of vascular malformations or aneurysms. Skull and Calvarium: No evidence of skull vault lesions or abnormal marrow signals within the calvarium. IMPRESSION: MRI of the brain with and without contrast: 1. Normal brain parenchyma and structures. 2. No evidence of acute intracranial pathology or abnormal contrast enhancement. 3. No significant interval changes when compared with prior CT. Electronically signed by Shannon Marquez 09-07-2024 03:34 AM
[2024-09-07] MEDS ORDERED: POLYETHYLENE (MIRALAX) 17 GM PACK PO PRN (04:30)
--- NOTE | 2024-09-07 05:41 | History & Physical Report ---
Date of Service September 07, 2024 Assessment & Plan (1) Facial droop: Plan: - sudden onset of left sided facial droop-> imagining/stroke work up unremarkable - Monteneg[place]'s Palsy possible although sudden onset and involvement of only lower face not typical - Lyme screen negative- rest of tick borne panel is pending - Given atypical presentation for [place]eneg[place]'s Palsy in that really only affecting lower half of face, would consult neurology - history of Factor V Leiden in the family-> would consider hypercoagulability work up as an outpatient (2) Anxiety: Plan: - continue home medications Plan Diet: regular Dispo: Med Surg with Tele Code: Full VTE Prophylaxis: Lovenox History of Present Illness Primary Care Provider: Scott Hackett MD 49 year old female with a past medical history of ADHD, anxiety, GERD, lumbar stenosis presenting with sudden onset of left sided facial droop. Sudden onset evening of 09/06 while she was getting ready to go to bed. Denies history of stroke or similar events prior. Denies any extremity weakness, change in sensations, headache. Denies substance use. Notes family history of Factor V Leiden->has not been tested. No recent illness. Does note multiple tick bites in the past few weeks. Stroke alert was called in the ED. Head CT, CTA head and neck and MRI brain were all without acute findings. CBC, CMP wnl. Lyme screen negative. Allergies Allergy/AdvReac Type Severity Reaction Status Date / Time Sulfa (Sulfonamide Allergy Unknown Rash Verified 02/07/24 08:44 Antibiotics) Home Medications Medication Instructions Recorded Confirmed Type acetaminophen 500 mg capsule 1,000 mg PO QID PRN Pain 06/30/20 09/07/24 History escitalopram oxalate 20 mg tablet 20 mg PO DAILY 08/24/22 09/07/24 History (Lexapro) clonazepam 0.5 mg tablet 0.5 mg PO BID PRN Anxiety 02/07/24 09/07/24 History lamotrigine 100 mg tablet 100 mg PO QPM 02/07/24 09/07/24 History tirzepatide 7.5 mg/0.5 mL 7.5 mg subcut WK 02/07/24 09/07/24 History subcutaneous pen injector (Mounjaro) methylprednisolone 4 mg tablets in 4 mg PO DAILY #21 ea 09/07/24 Rx a dose pack (Methylpred DP) valacyclovir 1 gram tablet 1,000 mg PO TID 7 days #21 tabs 09/07/24 Rx (Valtrex) Past Med/Surg History Problem List (Updated 09/07/24 @ 11:15 by Arian Rubio MD) Montenegro's palsy Mouth droop due to facial weakness (Acute) Facial droop History of sleeve gastrectomy LATERAL Dietary counseling and surveillance ADHD Anxiety HX GERD (gastroesophageal reflux disease) ON OCC Obesity Abnormal weight gain Neurogenic claudication due to lumbar spinal stenosis Medical History (Updated 09/07/24 @ 11:15 by Arian Rubio MD) MVP (mitral valve prolapse) DX'D "MILD" PER ECHO PER PT Temporomandibular joint disorder RIGHT SIDE CLICKS ON OCC-LOCKED X 1-NOT RECENTLY Asthma A [id number] INHALER USE ADULT Surgical History (Updated 03/23/21 @ 06:34 by Vimal Wagner MD) History of dilatation and curettage X 2 Previous back surgery History of esophagogastroduodenoscopy (EGD) Family History (Updated 08/24/22 @ 09:48 by Makenzie Michael) Grandfather (Maternal) Family history of diabetes mellitus Aunt Myocardial infarction Denies family history of Ovarian cancer Prostate cancer Breast cancer Colorectal cancer Social History Smoking Status: Former smoker Tobacco Type: Cigarettes Second Hand Exposure: No; Do You Dip or Chew Tobacco: No; Hx Alcohol Use: Yes Alcohol type: beer and hard liquor Hx Substance Use: No Preferred Language: Armenian Communication Ability: Effective [employer]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 Beliefs That Will Affect Care: None Current Living Situation: Spouse Feels Safe at Home: No Is there a partner from a previous relationship who is making you feel unsafe now?: No Assistive Devices: None and Glasses Review of Systems Review of Systems: As per above Physical Exam Physical Exam: Constitutional: well-appearing, no acute distress HEENT: NCAT, no conjunctival injection CV: regular rhythm, no murmur appreciated, extremities well-perfused, no LE edema Resp: CTABL, no wheezes/rales/rhonchi appreciated, no increased work of breathing MSK: no gross deformities appreciated Skin: warm, dry, no rash appreciated Neuro: alert, oriented, left sided facial droop effected lower 1/2 of face->left side of mouth dropping and some loss of contour of left nasolabial fold; others CN II-XII intact. Moving all extremities and strength 5/5 UE/LE B/L. Results & Data Results & Data Vital Signs (Past 12 Hours) Vital Signs Temp Pulse Pulse Resp BP BP Pulse Ox 09/07/24 04:04 66 09/07/24 04:00 68 16 111/68 95 09/07/24 02:21 70 18 127/78 94 09/07/24 01:15 69 18 122/75 96 09/07/24 00:13 98 09/07/24 00:11 65 09/06/24 23:51 36.8 C 68 18 141/89 H 98 O2 Del Method O2 Flow Rate 09/07/24 04:04 09/07/24 04:00 Room Air 09/07/24 02:21 Room Air 09/07/24 01:15 Room Air 09/07/24 00:13 Room Air 0 09/07/24 00:11 09/06/24 23:51 Room Air Supervising Physician Co-Signing Physician Notes Attending addendum: I have physically seen this patient, have supervised the medical residents activities, and agree with the H&P unless as otherwise noted. Assessment and Plan: Left facial droop- The patient will be admitted to telemetry for serial cardiac enzymes, serial EKG's, cardiac rhythm monitoring and a 2-D echocardiogram with Dopplers. CT scan head, CTA head and neck all negative MRI brain negative Order hypercoagulable workup Lyme study was negative, needs a full tick panel Consult neurology Anxiety- Continue routine home medications: Clonazepam, escitalopram, lamotrigine Hold tirzepatide while in hospital Resident Activity Tracking Resident Involvement: Resident Care Provided Care Provided: Adult Hospital Medicine
[2024-09-07] MEDS ORDERED: clonazePAM 0.5 MG TAB PO PRN (06:01)
--- NOTE | 2024-09-07 07:01 | Hospitalist Progress Note ---
Date of Service September 07, 2024 Assessment & Plan (1) Facial droop: Plan: - sudden onset of left sided facial droop-> imagining/stroke work up unremarkable - [place]enegro's Palsy possible although sudden onset and involvement of only lower face not typical - Lyme screen negative- rest of tick borne panel is pending - Given atypical presentation for [place]en[place]'s Palsy in that really only affecting lower half of face, would consult neurology - history of Factor V Leiden in the family-> would consider hypercoagulability work up as an outpatient (2) Anxiety: Plan: - continue home medications Plan Diet: regular Dispo: Med Surg with Tele Code: Full VTE Prophylaxis: Lovenox Admission and Anticipated Discharge Date Admission Date: September 07, 2024 Supervising Physician Co-Signing Physician Notes ATTESTATION I also saw the patient and confirmed chavez portions of the history and exam. I agree with the impression and plan in the resident documentation, and as summar ized below. I also discussed the case with the consulted neurologist EXAM VS as noted Alert and oriented. NAD Facial droop appreciated; remainder of gross neurological exam normal. 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 Neurology workup, including imaging, reassuring for more significant pathology She had already taken some steroids prior to coming to the hospital, so we will continue tapering dose Add Valtrex for 7 days Discharge today Additional per resident documentation Results & Data Results & Data Vital Signs (Past 12 Hours) Vital Signs Temp Pulse Pulse Resp BP BP Pulse Ox 09/07/24 05:39 78 16 107/65 97 09/07/24 05:01 67 18 104/61 95 09/07/24 05:01 95 09/07/24 04:04 66 09/07/24 04:00 68 16 111/68 95 09/07/24 02:21 70 18 127/78 94 09/07/24 01:15 69 18 122/75 96 09/07/24 00:13 98 09/07/24 00:11 65 09/06/24 23:51 36.8 C 68 18 141/89 H 98 O2 Del Method O2 Flow Rate 09/07/24 05:39 Room Air 09/07/24 05:01 09/07/24 05:01 Room Air 09/07/24 04:04 09/07/24 04:00 Room Air 09/07/24 02:21 Room Air 09/07/24 01:15 Room Air 09/07/24 00:13 Room Air 0 09/07/24 00:11 09/06/24 23:51 Room Air
[2024-09-07 07:27] LABS: iSTAT Creatinine 1.2 mg/dl (0.6-1.3); iSTAT Hemoglobin 13.6 g/dl (12.0-16.0); iSTAT Ionized Calcium 1.2 mmol/l (1.12-1.32); iSTAT Potassium 3.8 mmol/L (3.3-5.0)
[2024-09-07] MEDS: ACETAMINOPHEN 325 MG TAB PO PRN (07:49)
[2024-09-07] MEDS ORDERED: Nursing to Pharmacy Communication SCH (09:15)
[2024-09-07] MEDS: ESCITALOPRAM OXALATE 20 MG TAB PO SCH (09:55)
[2024-09-07 11:10] VITALS: RESP 15; TEMP 98.8; O2SAT 94
--- NOTE | 2024-09-07 11:20 | Neurology Consultation ---
Date of Consultation September 07, 2024 Assessment & Plan (1) Montenegro's palsy: Plan 49-year-old female with a left Montenegro's palsy. She is able to close the left eye although muscles of eyelid closure are partially weak. She does not have ipsilateral hyperacusis or dysgeusia. No otalgia. Would recommend treatment with corticosteroids, Medrol Dosepak. Would consider giving Valtrex as well. Prognosis for recovery should be favorable. Patient should not require additional neurological follow-up. Please call with any questions. 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 No associated weakness or numbness of the limbs. No as sociated change in vision, hearing, headache, or vertigo. She reports undergoing cholecystectomy a few weeks ago, no other illness. A CT of the head, CTA of the head and neck were normal. A brain MRI was normal as well. I independently reviewed these images. No evidence of hemorrhage, acute or subacute stroke. No evidence of demyelinating disease. No hydrocephalus, Chiari malformation, or abnormal postcontrast enhancement. This morning, she continues to exhibit left facial weakness. She has some subtle weakness of the forehead on the left as well although she does receive cosmetic Botox which limits forehead movement bilaterally. Lyme disease screening was negative. Allergies Allergy/AdvReac Type Severity Reaction Status Date / Time Sulfa (Sulfonamide Allergy Unknown Rash Verified 02/07/24 08:44 Antibiotics) Home Medications Medication Instructions Recorded Confirmed Type acetaminophen 500 mg capsule 1,000 mg PO QID PRN Pain 06/30/20 09/07/24 History escitalopram oxalate 20 mg tablet 20 mg PO DAILY 08/24/22 09/07/24 History (Lexapro) clonazepam 0.5 mg tablet 0.5 mg PO BID PRN Anxiety 02/07/24 09/07/24 History lamotrigine 100 mg tablet 100 mg PO QPM 02/07/24 09/07/24 History tirzepatide 7.5 mg/0.5 mL 7.5 mg subcut WK 02/07/24 09/07/24 History subcutaneous pen injector (Gilda) Patient History Medical History (Updated 09/07/24 @ 11:15 by Arian Rubio MD) MVP (mitral valve prolapse) DX'D "MILD" PER ECHO PER PT Temporomandibular joint disorder RIGHT SIDE CLICKS ON OCC-LOCKED X 1-NOT RECENTLY Asthma A [id number] INHALER USE ADULT Surgical History (Updated 03/23/21 @ 06:34 by Vimal Wagner MD) History of dilatation and curettage X 2 Previous back surgery History of esophagogastroduodenoscopy (EGD) Family History (Updated 08/24/22 @ 09:48 by Makenzie Michael) Grandfather (Maternal) Family history of diabetes mellitus Aunt Myocardial infarction Denies family history of Ovarian cancer Prostate cancer Breast cancer Colorectal cancer Social History Smoking Status: Former smoker Tobacco Type: Cigarettes Second Hand Exposure: No; Do You Dip or Chew Tobacco: No; Tobacco Cessation Education Requested by Patient: No Hx Alcohol Use: Yes Alcohol type: beer and hard liquor Hx Substance Use: No Preferred Language: Uzbek Communication Ability: Effective 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 Beliefs That Will Affect Care: None Current Living Situation: Spouse Other Information That Helps Us Care for You: No Feels Safe at Home: No Is there a partner from a previous relationship who is making you feel unsafe now?: No Any Concerns about Your Family Situation: No Would You Like to Speak to Someone About Your Situation: No Safety Concerns: Feels Safe At This Time Assistive Devices: None and Glasses Review of Systems Constitutional: no fever and no chills Eyes: no blind spots and no diplopia Ear, Nose, Mouth, Throat: no ear pain and no hearing loss Respiratory: no cough and no dyspnea Cardiovascular: no chest pain and no palpitations Gastrointestinal: no nausea and no vomiting Genitourinary: no dysuria Musculoskeletal: no myalgia and no muscle weakness Integumentary: no rash and no lesions Neurologic: as per Subjective / HPI; no gait abnormality, no localized weak ness, no loss of sensation, no lack of coordination, no tremor(s), no abnormal movements, no headache(s), no abnormal speech and no confusion Psychiatric: no depression and no anxiety Hematologic / Lymphatic: no easy bleeding and no easy bruising Exam (Neuro) Constitutional: well developed and well nourished; no acute distress Eyes: normal visual yeh by confrontation, PERRL and EOM intact bilaterally; no nystagmus Neurologic: Oriented to:: Person, Place and Time Memory: Short Term Intact and Remote Intact Attention: Span Intact and Concentration Intact Speech Fluency: negative Dysarthria or Dysfluency Speech Aphasia: negative Aphasia Fund of Knowledge: Current Events, Past History and Vocabulary Cranial Nerves: Normal II, III, IV, , V, VIII, IX, X, XI and XII; Abnorm VII Motor Strength: Normal Lower Extremities and Normal Upper Extremities Motor Tone: Normal Lower Extremities and Normal Upper Extremities Muscle Bulk/Involuntary Movements: No Involuntary Movements; negative Muscle Atrophy Sensation: Light Touch Intact, Pain/Temperature Intact and Proprioception Intact Coordination: Normal; negative Dysdiadochokinesia or Finger-Nose Abnormal Deep Tendon Reflexes: Rt Triceps: 2+, Lt Triceps: 2+, Rt Biceps: 2+, Lt Biceps: 2+, Rt Brachioradialis: 2+, Lt Brachioradialis: 2+, Rt Patellar: 2+, Lt Patellar: 2+, Rt Ankle: 2+ and Lt Ankle: 2+ Details: Patient has mild weakness of the left eyelid closure with manual testing Results & Data Vital Signs (Past 12 Hours) Vital Signs Temp Pulse Pulse Pulse Resp BP BP 09/07/24 07:56 09/07/24 07:39 36.4 C L 73 16 149/91 H 09/07/24 07:00 71 09/07/24 05:56 36.5 C 72 17 131/78 09/07/24 05:39 78 16 107/65 09/07/24 05:01 67 18 09/07/24 05:01 09/07/24 04:04 66 09/07/24 04:00 68 16 09/07/24 02:21 70 18 09/07/24 01:15 69 18 09/07/24 00:13 09/07/24 00:11 65 09/06/24 23:51 36.8 C 68 18 141/89 H BP Pulse Ox O2 Del Method O2 Flow Rate 09/07/24 07:56 Room Air 09/07/24 07:39 97 Room Air 09/07/24 07:00 09/07/24 05:56 98 Room Air 09/07/24 05:39 97 Room Air 09/07/24 05:01 104/61 95 09/07/24 05:01 95 Room Air 09/07/24 04:04 09/07/24 04:00 111/68 95 Room Air 09/07/24 02:21 127/78 94 Room Air 09/07/24 01:15 122/75 96 Room Air 09/07/24 00:13 98 Room Air 0 09/07/24 00:11 09/06/24 23:51 98 Room Air Laboratory Results WBC 7.66, hemoglobin 13.3, hematocrit 40.2, platelet count 275, sodium 137, potassium 137, BUN 19, creatinine 1.2 magnesium 2.2, AST 21, ALT 37, Lyme screen negative Diagnostic Findings CT of the head, CTA of the head and neck, and brain MRI are as described in the HPI, I independently reviewed these images. Electrocardiogram reveals a normal sinus rhythm, 64 bpm. Coding Level of Care Code 67918 INT INP/OBS CARE 2/55MIN Diagnoses Monten[place]ro's palsy G51.0 Time Spent (min) 60 Comment Total time includes patient contact, chart review, counseling, note preparation
[2024-09-07 12:00] VITALS: BP 104/61; PULSE 72
--- NOTE | 2024-09-07 15:51 | Electrocardiogram Report ---
Test Reason : Blood Pressure : */* mmHG Vent. Rate : 64 BPM Atrial Rate : 64 BPM P-R Int : 158 ms QRS Dur : 86 ms QT Int : 424 ms P-R-T Axes : 20 35 35 degrees QTcB Int : 437 ms Normal sinus rhythm T wave abnormality, consider anterior ischemia Abnormal ECG When compared with ECG of 04-Jul-2020 08:47, No significant change was found Confirmed by Augustus De Dios ([id number]) on 09/07/2024 3:50:46 PM Referred By: REFERRED SELF Confirmed By: Augustus De Dios
[2024-09-07] MEDS ORDERED: ENOXAPARIN INJ 40 MG/0.4 ML SYR SQ SCH (18:00)
--- NOTE | 2024-09-07 18:17 | Communication Note ---
Date of Service: September 07, 2024 ATTESTATION I also saw the patient and confirmed chavez portions of the history and exam. I agree with the impression and plan in the resident documentation, and as summarized in his documentation. I also discussed the case with the consulted neurologist. EXAM VS as noted Alert and oriented. NAD Facial droop appreciated; remainder of gross neurological exam normal. 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
--- NOTE | 2024-09-07 18:47 | Discharge Summary ---
Date of Service September 07, 2024 Admission HPI Per Admitting Provider 49 year old female with a past medical history of ADHD, anxiety, GERD, lumbar stenosis presenting with sudden onset of left sided facial droop. Sudden onset evening of 09/06 while she was getting ready to go to bed. Denies history of stroke or similar events prior. Denies any extremity weakness, change in sensations, headache. Denies substance use. Notes family history of Factor V Leiden->has not been tested. No recent illness. Does note multiple tick bites in the past few weeks. Stroke alert was called in the ED. Head CT, CTA head and neck and MRI brain were all without acute findings. CBC, CMP wnl. Lyme screen negative. Admission Exam Per Admitting Provider Constitutional: well-appearing, no acute distress HEENT: NCAT, no conjunctival injection CV: regular rhythm, no murmur appreciated, extremities well-perfused, no LE edema Resp: CTABL, no wheezes/rales/rhonchi appreciated, no increased work of breathing MSK: no gross deformities appreciated Skin: warm, dry, no rash appreciated Neuro: alert, oriented, left sided facial droop effected lower 1/2 of face->left side of mouth dropping and some loss of contour of left nasolabial fold; others CN II-XII intact. Moving all extremities and strength 5/5 UE/LE B/L. Principal Diagnosis montenegro's palsy, left Discharge Exam Constitutional: A&Ox3, appears stated age, not in acute distress HEENT: anicteric sclerae, EOM intact Cardiovascular: RRR, +s1/s2, no m/r/g Respiratory: clear to auscultation b/l, equal air entry b/l, no wheezes/rales/rhonchi GI: abdomen soft, +BS, no TTP of abdomen MSK: 5/5 strength in all extremities Neuro: mild L-sided facial droop- drooping of L angle of mouth especially apparent when smiling and talking; L forehead movement appears intact, speech intact, no sensory deficits - otherwise CN II-XII grossly intact Discharge Data Allergies Allergy/AdvReac Type Severity Reaction Status Date / Time Sulfa (Sulfonamide Allergy Unknown Rash Verified 02/07/24 08:44 Antibiotics) Consultations 09/07/24 03:56 ED Decision to Admit Stat 09/07/24 08:00 Consult Neurology Routine Ordered Studies 09/07/24 00:02 CT angio head w con Stat CT angio neck with con Stat CT head/brain wo con Stat 09/07/24 01:14 MRI Brain [MR brain wo/w con] Stat Hospital Course (1) Monten[place]'s palsy: CTA head and neck, CT head, and MRI brain all unremarkable; Lyme negative neurologist Dr. Rubio suspecting [place]eneg[place]'s Palsy, treatment recommendations below: - on discharge, treating with Medrol dose pack and Valtrex 1g PO TID for a week - patient knows to go to ER if concerned about stroke symptoms again - to follow up with PCP Total Time Total Time Spent Total Time Spent (In Minutes): 45 Discharge Plan Discharge Items Patient Disposition: Home - Self-Care Reason For Visit: FACIAL DROOP Discharge Diagnosis: montenegro's palsy Activity: Per Instructions section Non-emergency contact: Primary Care Provider Call non-emergency contact if: you have any medication questions Follow-up/Referrals: Scott Hackett MD [Primary Care Provider] - (PLEASE CALL YOUR PRIMARY CARE PROVIDER TO SCHEDULE A HOSPITAL DISCHARGE FOLLOW-UP APPOINTMENT WITHIN 7-10 DAYS) Diet: Regular Addtl Attending Provider Instructions: Follow-up appointments: Make a follow-up appointment with your PCP within the next week. It is very important that you follow up with them shortly after discharge from the hospital. Medications: Your medication list has been reviewed and reconciled upon discharge to ensure accuracy and continuity of care. An updated list of all your medications is included with your hospital discharge paperwork. Please review this list closely, and make note of any changes. Medications were prescribed as below according to recommendations per neurology consultation. We sent a new medication called Valtrex to your pharmacy. Take Valtrex 1g TID for 7 days. We sent a new medication called Methylprednisolone (Medrol Dosepak) to your pharmacy. Take per package directions for 6 days. CALL 911 OR GO TO THE EMERGENCY DEPARTMENT if you experience any of the fol lowing: Sudden, severe abdominal pain or nausea/vomiting Severe chest pain, or chest pain that radiates (moves) to your jaw or arm Sudden, severe shortness of breath or difficulty breathing Thank you for allowing us to participate in your care. Pending Studies at Discharge: Yes (tickborne studies pending. Lyme test negative.) Stand-Alone Forms: My [facility], Smoking Cessation Medications and DC Order Prescriptions: New valacyclovir [Valtrex] 1 gram tablet 1,000 mg PO TID 7 Days Qty: 21 0RF methylprednisolone [Methylpred DP] 4 mg tablets,dose pack 4 mg PO DAILY Qty: 21 0RF Continued escitalopram oxalate [Lexapro] 20 mg tablet 20 mg PO DAILY lamotrigine 100 mg tablet 100 mg PO QPM clonazepam 0.5 mg tablet 0.5 mg PO BID PRN (Reason: Anxiety) Mounjaro 7.5 mg/0.5 mL pen injector 7.5 mg subcut WK acetaminophen 500 mg Capsule 1,000 mg PO QID PRN (Reason: Pain) Discharge Orders: Discharge Order (Routine); Ordered 09/07/24 Ordered By: Danielle Toney Admission Data Admit Date/Time: 09/07/24 04:22 Attending Provider: Meliton Morfin Admit Provider: Sammi Viveros Primary Care Provider: Scott Hackett Other Providers: Joseph Luis; Arian Rubio Other Interventions: Discharge Summary Assessment (RN) Last Done: 09/07/24 11:59 Resident Activity Tracking Resident Involvement: Resident Care Provided Care Provided: Adult Hospital Medicine
--- NOTE | 2024-09-07 20:10 | Billing Data ---
Date of Service September 07, 2024 Coding Level of Care Code 18481 INT INP/OBS CARE
[2024-09-07] MEDS ORDERED: ESCITALOPRAM OXALATE 20 MG TAB PO SCH (21:00)
[2024-09-07] MEDS ORDERED: lamoTRIgine 100 MG TAB PO SCH (21:00)
[2024-09-11 23:52] LABS: Babesia microti DNA Not Detected (Not Detected); Q Fever IgG, Phase I NEGATIVE; Q Fever Phase I IgM Antibody NEGATIVE; Q Fever Phase II IgG Antibody NEGATIVE; Q Fever Phase II IgM Antibody NEGATIVE; R. typhi IgG Ab NOT DETECTED; R. typhi IgM Ab NOT DETECTED; RMSF IgG Ab NOT DETECTED; RMSF IgM Ab NOT DETECTED
== END 2024-09-07 13:18 | disposition home or self-care (01) ==
LOC: ED 23:48 → 2N 23:48 → SUATTDRO 09-07 04:22 → 2N 09-07 05:39